=== PATIENT | female | born 1975 | race African-American/Black ===

== ENCOUNTER 2021-05-13 08:44 | Inpatient (IN) | payer OTHER ==
[2021-05-13] MEDS ORDERED: MAG HYDROX/AL HYDROX/SIMETH 30 ML UNIT-DOSE CUP PO PRN (09:38)
[2021-05-13] MEDS ORDERED: ONDANSETRON *ODT* 4 MG TABLET SL PRN (09:38)
[2021-05-13] MEDS ORDERED: IBUPROFEN 400 MG TABLET (FP) PO PRN (09:38)
[2021-05-13] MEDS ORDERED: ACETAMINOPHEN 325 MG TABLET (FP) PO PRN ×2 (09:38)
[2021-05-13] MEDS ORDERED: MAGNESIUM HYDROX 2400MG/30ML ORAL SUSPENSION 30 ML CUP PO PRN (09:38)
[2021-05-13] MEDS ORDERED: MAGNESIUM CITRATE 300 ML BOTTLE PO PRN (09:38)
[2021-05-13] MEDS ORDERED: BISMUTH SUBSALICYLATE 262 MG/15 ML BTL PO PRN (09:38)
[2021-05-13] MEDS ORDERED: MENTHOL/PHENOL 1 EACH UD MM PRN (09:38)
[2021-05-13 10:37] VITALS: BMI 27.8
[2021-05-13] MEDS: hydrOXYzine PAMOATE 25 MG CAPSULE (FP) PO SCH ×4 (11:44→22:33)
[2021-05-13] MEDS: METHOCARBAMOL 500 MG TABLET PO PRN ×2 (11:44→18:02)
[2021-05-13] MEDS: diazePAM 5 MG TABLET PO SCH ×2 (11:46→17:28)
[2021-05-13] MEDS: PRENATAL VITAMINS W/ FOLIC ACID TABLET (FP) PO SCH (11:46)
[2021-05-13 13:58] LABS: HEMATOCRIT 41.3 % (32.4-45.2); HEMOGLOBIN 13.2 GM/dL (10.7-15.3); MCH 27.6 pg (25.7-33.7); MEAN CELL VOLUME 86.4 fl (80-96); PLATELET COUNT 229 10^3/uL (134-434); RBC 4.78 M/mm3 (3.60-5.2); RDW 16.7 % (11.6-15.6); WHITE BLOOD COUNT 6.5 K/mm3 (4.0-10.0)
[2021-05-13 14:05] LABS: ALBUMIN 4.4 g/dl (3.4-5.0); CALCIUM 9.5 mg/dL (8.5-10.1)
[2021-05-13 14:09] LABS: CREATININE 0.7 mg/dL (0.55-1.3)
[2021-05-13 14:10] LABS: BILIRUBIN,TOTAL 0.7 mg/dL (0.2-1); TOT PROT 8.6 g/dl (6.4-8.2)
[2021-05-13] MEDS: TAMOXIFEN CITRATE 10 MG TABLET PO SCH (16:01)
[2021-05-13] MEDS: diazePAM 5 MG TABLET PO PRN ×2 (18:01→22:34)
[2021-05-13] MEDS: traZODone HCL 50 MG TABLET (FP) PO SCH (22:33)
[2021-05-13] MEDS: THIAMINE HCL 100 MG TABLET (FP) PO SCH (22:33)
[2021-05-13] MEDS: MELATONIN 5 MG TABLETS PO SCH (22:34)
[2021-05-14] MEDS: diazePAM 5 MG TABLET PO SCH ×5 (00:04→22:16)
[2021-05-14] MEDS: hydrOXYzine PAMOATE 25 MG CAPSULE (FP) PO SCH ×5 (06:06→22:18)
[2021-05-14] MEDS: TAMOXIFEN CITRATE 10 MG TABLET PO SCH (10:43)
[2021-05-14] MEDS: PRENATAL VITAMINS W/ FOLIC ACID TABLET (FP) PO SCH (10:44)
[2021-05-14] MEDS: THIAMINE HCL 100 MG TABLET (FP) PO SCH (22:15)
[2021-05-14] MEDS: traZODone HCL 50 MG TABLET (FP) PO SCH (22:15)
[2021-05-14] MEDS: METHOCARBAMOL 500 MG TABLET PO PRN (22:16)
[2021-05-14] MEDS: MELATONIN 5 MG TABLETS PO SCH (22:17)
[2021-05-15] MEDS: hydrOXYzine PAMOATE 25 MG CAPSULE (FP) PO SCH ×5 (06:25→22:32)
[2021-05-15] MEDS: diazePAM 5 MG TABLET PO SCH ×3 (06:26→22:30)
[2021-05-15] MEDS: PRENATAL VITAMINS W/ FOLIC ACID TABLET (FP) PO SCH (10:24)
[2021-05-15] MEDS: TAMOXIFEN CITRATE 10 MG TABLET PO SCH (10:24)
[2021-05-15] MEDS: diazePAM 5 MG TABLET PO PRN (10:25)
[2021-05-15] MEDS: traZODone HCL 50 MG TABLET (FP) PO SCH (22:29)
[2021-05-15] MEDS: THIAMINE HCL 100 MG TABLET (FP) PO SCH (22:29)
[2021-05-15] MEDS: MELATONIN 5 MG TABLETS PO SCH (22:33)
[2021-05-16] MEDS ORDERED: diazePAM 5 MG TABLET PO SCH (06:00)
[2021-05-16] MEDS: hydrOXYzine PAMOATE 25 MG CAPSULE (FP) PO SCH ×2 (06:20→10:08)
[2021-05-16] MEDS: TAMOXIFEN CITRATE 10 MG TABLET PO SCH (10:08)
[2021-05-16] MEDS: PRENATAL VITAMINS W/ FOLIC ACID TABLET (FP) PO SCH (10:08)
[2021-05-16 11:05] VITALS: BP 142/98; PULSE 89; TEMP 97.1
[2021-05-17] MEDS ORDERED: diazePAM 5 MG TABLET PO ONE (06:00)
== END 2021-05-16 11:44 | disposition home or self-care (01) | DRG 775 ==
LOC: YASAS 08:44 → Y6N 10:45
PROVIDERS: ADMIT Allergy & Immunology; ATTEND Allergy & Immunology
PROC: HZ2ZZZZ Detoxification Services for Substance Abuse Treatment (ICD-10-PCS; principal; 2021-05-13)
DX: F10.230 Alcohol dependence with withdrawal, uncomplicated (principal); F41.1 Generalized anxiety disorder; F32.9 Major depressive disorder, single episode, unspecified; I10 Essential (primary) hypertension; Z85.3 Personal history of malignant neoplasm of breast; Z90.11 Acquired absence of right breast and nipple
CPT/HCPCS: 36415; 80053; 81025; 85027; 86780; 93005; 93010; C9803; U0003; U0005

== ENCOUNTER 2021-05-22 12:57 | Inpatient (IN) | payer OTHER ==
[2021-05-22 13:14] VITALS: BMI 24.6
[2021-05-22] MEDS ORDERED: MAGNESIUM HYDROX 2400MG/30ML ORAL SUSPENSION 30 ML CUP PO PRN (13:55)
[2021-05-22] MEDS ORDERED: MENTHOL/PHENOL 1 EACH UD MM PRN (13:55)
[2021-05-22] MEDS ORDERED: ACETAMINOPHEN 325 MG TABLET (FP) PO PRN ×2 (13:55)
[2021-05-22] MEDS ORDERED: MAG HYDROX/AL HYDROX/SIMETH 30 ML UNIT-DOSE CUP PO PRN (13:55)
[2021-05-22] MEDS ORDERED: MAGNESIUM CITRATE 300 ML BOTTLE PO PRN (13:55)
[2021-05-22] MEDS ORDERED: IBUPROFEN 400 MG TABLET (FP) PO PRN (13:55)
[2021-05-22] MEDS ORDERED: ONDANSETRON *ODT* 4 MG TABLET SL PRN (13:55)
[2021-05-22] MEDS ORDERED: BISMUTH SUBSALICYLATE 524 MG/30 ML PO PRN (13:55)
[2021-05-22] MEDS: hydrOXYzine PAMOATE 25 MG CAPSULE (FP) PO SCH ×3 (15:57→22:33)
[2021-05-22] MEDS: METHOCARBAMOL 500 MG TABLET PO PRN (22:33)
[2021-05-22] MEDS: THIAMINE HCL 100 MG TABLET (FP) PO SCH (22:33)
[2021-05-22] MEDS: MELATONIN 5 MG TABLETS PO SCH (22:33)
[2021-05-23] MEDS: hydrOXYzine PAMOATE 25 MG CAPSULE (FP) PO SCH ×5 (06:04→22:20)
[2021-05-23] MEDS ORDERED: LORazepam 2 MG TABLET PO ONE (06:57)
[2021-05-23] MEDS ORDERED: LORazepam 1 MG TABLET PO PRN (06:57)
[2021-05-23 09:32] LABS: HEMATOCRIT 36.4 % (32.4-45.2); MCH 27.9 pg (25.7-33.7); MEAN CELL VOLUME 84.7 fl (80-96); MEAN PLT VOLUME 7.8 fl (7.5-11.1); PLATELET COUNT 218 10^3/uL (134-434); RDW 16.5 % (11.6-15.6); WHITE BLOOD COUNT 5.4 K/mm3 (4.0-10.0)
[2021-05-23 09:52] LABS: BLOOD UREA NITROGEN 10.5 mg/dL (7-18)
[2021-05-23 09:55] LABS: CALCIUM 9.4 mg/dL (8.5-10.1); CREATININE 0.9 mg/dL (0.55-1.3)
[2021-05-23 09:57] LABS: BILIRUBIN,TOTAL 0.8 mg/dL (0.2-1); TOT PROT 7.7 g/dl (6.4-8.2)
[2021-05-23] MEDS: LORazepam 2 MG TABLET PO SCH ×3 (09:59→22:19)
[2021-05-23] MEDS: PRENATAL VITAMINS W/ FOLIC ACID TABLET (FP) PO SCH (10:00)
[2021-05-23 10:45] LABS: HIV INTERPRETATION NEGATIVE (NEGATIVE)
[2021-05-23] MEDS: cloNIDine HCL 0.1 MG TABLET PO PRN (18:09)
[2021-05-23] MEDS: THIAMINE HCL 100 MG TABLET (FP) PO SCH (22:19)
[2021-05-23] MEDS: METHOCARBAMOL 500 MG TABLET PO PRN (22:19)
[2021-05-23] MEDS: MELATONIN 5 MG TABLETS PO SCH (22:19)
[2021-05-24] MEDS: hydrOXYzine PAMOATE 25 MG CAPSULE (FP) PO SCH ×5 (05:44→22:19)
[2021-05-24] MEDS: LORazepam 2 MG TABLET PO SCH ×4 (05:44→22:19)
[2021-05-24] MEDS: PRENATAL VITAMINS W/ FOLIC ACID TABLET (FP) PO SCH (10:13)
[2021-05-24] MEDS: cloNIDine HCL 0.1 MG TABLET PO PRN (10:15)
[2021-05-24] MEDS: METHOCARBAMOL 500 MG TABLET PO PRN (10:17)
[2021-05-24] MEDS: LISINOPRIL 10 MG TABLET PO SCH (12:33)
[2021-05-24] MEDS: THIAMINE HCL 100 MG TABLET (FP) PO SCH (22:19)
[2021-05-24] MEDS: MELATONIN 5 MG TABLETS PO SCH (22:19)
[2021-05-25] MEDS: hydrOXYzine PAMOATE 25 MG CAPSULE (FP) PO SCH ×5 (05:46→22:11)
[2021-05-25] MEDS: LORazepam 1 MG TABLET PO SCH ×4 (05:46→22:09)
[2021-05-25] MEDS: PRENATAL VITAMINS W/ FOLIC ACID TABLET (FP) PO SCH (10:02)
[2021-05-25] MEDS: METHOCARBAMOL 500 MG TABLET PO PRN ×2 (10:02→22:09)
[2021-05-25] MEDS: LISINOPRIL 10 MG TABLET PO SCH (10:03)
[2021-05-25] MEDS: cloNIDine HCL 0.1 MG TABLET PO PRN (22:09)
[2021-05-25] MEDS: THIAMINE HCL 100 MG TABLET (FP) PO SCH (22:10)
[2021-05-25] MEDS: MELATONIN 5 MG TABLETS PO SCH (22:10)
[2021-05-26] MEDS ORDERED: LORazepam 0.5 MG TABLET PO PRN
[2021-05-26] MEDS: hydrOXYzine PAMOATE 25 MG CAPSULE (FP) PO SCH ×5 (06:03→22:34)
[2021-05-26] MEDS: LORazepam 0.5 MG TABLET PO SCH ×3 (06:03→17:21)
[2021-05-26] MEDS: PRENATAL VITAMINS W/ FOLIC ACID TABLET (FP) PO SCH (10:02)
[2021-05-26] MEDS: LISINOPRIL 20 MG TABLET PO SCH (10:03)
[2021-05-26] MEDS: METHOCARBAMOL 500 MG TABLET PO PRN (10:03)
[2021-05-26] MEDS: THIAMINE HCL 100 MG TABLET (FP) PO SCH (22:33)
[2021-05-26] MEDS: MELATONIN 5 MG TABLETS PO SCH (22:33)
[2021-05-27] MEDS: LORazepam 0.5 MG TABLET PO SCH (00:12)
[2021-05-27] MEDS ORDERED: LORazepam 0.5 MG TABLET PO ONE (05:00)
[2021-05-27] MEDS: hydrOXYzine PAMOATE 25 MG CAPSULE (FP) PO SCH ×5 (06:48→21:16)
[2021-05-27] MEDS: LISINOPRIL 20 MG TABLET PO SCH (10:25)
[2021-05-27] MEDS: PRENATAL VITAMINS W/ FOLIC ACID TABLET (FP) PO SCH (10:25)
[2021-05-27 14:19] LABS: URINE APPEARANCE Clear; URINE BILIRUBIN Negative (NEGATIVE); URINE COLOR Yellow; URINE GLUCOSE (UA) Negative (NEGATIVE); URINE KETONE Negative (NEGATIVE); URINE LEUK ESTERASE 1+ (NEGATIVE); URINE NITRITE Negative (NEGATIVE); URINE PROTEIN Negative (NEGATIVE); URINE UROBILINOGEN 0.2 mg/dL (0.2-1.0)
[2021-05-27 14:32] LABS: EPI CELLS 2+ /uL (0-25.1); URINE RBC 0-3 /uL (0-23.9)
[2021-05-27 14:33] LABS: URINE BACTERIA FEW /uL (0-1359)
[2021-05-27] MEDS: THIAMINE HCL 100 MG TABLET (FP) PO SCH (21:15)
[2021-05-27] MEDS: MELATONIN 5 MG TABLETS PO SCH (21:15)
[2021-05-27] MEDS: cloNIDine HCL 0.1 MG TABLET PO PRN (21:16)
[2021-05-27] MEDS: METHOCARBAMOL 500 MG TABLET PO PRN (21:16)
[2021-05-28] MEDS: hydrOXYzine PAMOATE 25 MG CAPSULE (FP) PO SCH ×2 (06:35→10:14)
[2021-05-28] MEDS: LISINOPRIL 20 MG TABLET PO SCH (10:14)
[2021-05-28] MEDS: PRENATAL VITAMINS W/ FOLIC ACID TABLET (FP) PO SCH (10:14)
[2021-05-28] MEDS: traZODone HCL 100 MG TABLET (FP) PO SCH (21:13)
[2021-05-28] MEDS: THIAMINE HCL 100 MG TABLET (FP) PO SCH (21:13)
[2021-05-28] MEDS: MELATONIN 5 MG TABLETS PO SCH (21:13)
[2021-05-28] MEDS: cloNIDine HCL 0.1 MG TABLET PO PRN (21:13)
[2021-05-29] MEDS: PRENATAL VITAMINS W/ FOLIC ACID TABLET (FP) PO SCH (10:32)
[2021-05-29] MEDS: LISINOPRIL 20 MG TABLET PO SCH (10:33)
[2021-05-29] MEDS: traZODone HCL 100 MG TABLET (FP) PO SCH (22:41)
[2021-05-29] MEDS: THIAMINE HCL 100 MG TABLET (FP) PO SCH (22:42)
[2021-05-29] MEDS: hydrOXYzine PAMOATE 25 MG CAPSULE (FP) PO PRN (22:42)
[2021-05-29] MEDS: MELATONIN 5 MG TABLETS PO SCH (22:42)
[2021-05-30] MEDS: PRENATAL VITAMINS W/ FOLIC ACID TABLET (FP) PO SCH (10:44)
[2021-05-30] MEDS: hydrOXYzine PAMOATE 25 MG CAPSULE (FP) PO PRN (10:45)
[2021-05-30] MEDS: LISINOPRIL 20 MG TABLET PO SCH (10:45)
[2021-05-30] MEDS: THIAMINE HCL 100 MG TABLET (FP) PO SCH (22:05)
[2021-05-30] MEDS: traZODone HCL 100 MG TABLET (FP) PO SCH (22:05)
[2021-05-30] MEDS: MELATONIN 5 MG TABLETS PO SCH (22:06)
[2021-05-31] MEDS: PRENATAL VITAMINS W/ FOLIC ACID TABLET (FP) PO SCH (10:41)
[2021-05-31] MEDS: hydrOXYzine PAMOATE 25 MG CAPSULE (FP) PO PRN ×2 (10:42→17:38)
[2021-05-31] MEDS: LISINOPRIL 20 MG TABLET PO SCH (10:42)
[2021-05-31] MEDS: THIAMINE HCL 100 MG TABLET (FP) PO SCH (22:16)
[2021-05-31] MEDS: traZODone HCL 100 MG TABLET (FP) PO SCH (22:16)
[2021-05-31] MEDS: MELATONIN 5 MG TABLETS PO SCH (22:17)
[2021-05-31] MEDS: ARTIFICIAL TEARS (POLYVINYL ALCOHOL) OPTH DROPS OU PRN (22:17)
[2021-06-01] MEDS: hydrOXYzine PAMOATE 25 MG CAPSULE (FP) PO PRN (07:00)
[2021-06-01] MEDS: LISINOPRIL 20 MG TABLET PO SCH (10:21)
[2021-06-01] MEDS: PRENATAL VITAMINS W/ FOLIC ACID TABLET (FP) PO SCH (10:21)
[2021-06-01] MEDS: THIAMINE HCL 100 MG TABLET (FP) PO SCH (21:19)
[2021-06-01] MEDS: traZODone HCL 100 MG TABLET (FP) PO SCH (21:19)
[2021-06-01] MEDS: MELATONIN 5 MG TABLETS PO SCH (21:19)
[2021-06-02] MEDS: hydrOXYzine PAMOATE 25 MG CAPSULE (FP) PO PRN (06:22)
[2021-06-02] MEDS: PRENATAL VITAMINS W/ FOLIC ACID TABLET (FP) PO SCH (10:58)
[2021-06-02] MEDS: LISINOPRIL 20 MG TABLET PO SCH (10:59)
[2021-06-02] MEDS ORDERED: PT OWN MED DRAWER 7, Y5N ONE (21:25)
[2021-06-02] MEDS: traZODone HCL 100 MG TABLET (FP) PO SCH (21:26)
[2021-06-02] MEDS: THIAMINE HCL 100 MG TABLET (FP) PO SCH (21:26)
[2021-06-02] MEDS: ARTIFICIAL TEARS (POLYVINYL ALCOHOL) OPTH DROPS OU PRN (21:26)
[2021-06-02] MEDS: MELATONIN 5 MG TABLETS PO SCH (21:27)
[2021-06-03] MEDS: LISINOPRIL 20 MG TABLET PO SCH (10:42)
[2021-06-03] MEDS: PRENATAL VITAMINS W/ FOLIC ACID TABLET (FP) PO SCH (10:42)
[2021-06-03] MEDS: ARTIFICIAL TEARS (POLYVINYL ALCOHOL) OPTH DROPS OU PRN (10:44)
[2021-06-03] MEDS: hydrOXYzine PAMOATE 25 MG CAPSULE (FP) PO PRN (21:20)
[2021-06-03] MEDS: traZODone HCL 100 MG TABLET (FP) PO SCH (21:20)
[2021-06-03] MEDS: MELATONIN 5 MG TABLETS PO SCH (21:20)
[2021-06-03] MEDS: THIAMINE HCL 100 MG TABLET (FP) PO SCH (21:20)
[2021-06-04] MEDS: ARTIFICIAL TEARS (POLYVINYL ALCOHOL) OPTH DROPS OU PRN ×2 (06:51→21:40)
[2021-06-04] MEDS: hydrOXYzine PAMOATE 25 MG CAPSULE (FP) PO PRN ×2 (06:51→21:39)
[2021-06-04] MEDS ORDERED: PT OWN MED DRAWER 7, Y5N ONE (06:52)
[2021-06-04] MEDS: PRENATAL VITAMINS W/ FOLIC ACID TABLET (FP) PO SCH (10:35)
[2021-06-04] MEDS: LISINOPRIL 20 MG TABLET PO SCH (10:37)
[2021-06-04] MEDS ORDERED: NALTREXONE HCL 50 MG TABLET PO ONE (14:30)
[2021-06-04] MEDS: THIAMINE HCL 100 MG TABLET (FP) PO SCH (21:39)
[2021-06-04] MEDS: traZODone HCL 100 MG TABLET (FP) PO SCH (21:39)
[2021-06-04] MEDS: MELATONIN 5 MG TABLETS PO SCH (21:40)
[2021-06-05] MEDS: PRENATAL VITAMINS W/ FOLIC ACID TABLET (FP) PO SCH (10:50)
[2021-06-05] MEDS: NALTREXONE HCL 50 MG TABLET PO SCH (10:52)
[2021-06-05] MEDS: ARTIFICIAL TEARS (POLYVINYL ALCOHOL) OPTH DROPS OU PRN ×2 (10:52→21:31)
[2021-06-05] MEDS: LISINOPRIL 20 MG TABLET PO SCH (10:52)
[2021-06-05] MEDS: hydrOXYzine PAMOATE 25 MG CAPSULE (FP) PO PRN (10:53)
[2021-06-05] MEDS: traZODone HCL 100 MG TABLET (FP) PO SCH (21:31)
[2021-06-05] MEDS: MELATONIN 5 MG TABLETS PO SCH (21:32)
[2021-06-05] MEDS: THIAMINE HCL 100 MG TABLET (FP) PO SCH (21:32)
[2021-06-06] MEDS: PRENATAL VITAMINS W/ FOLIC ACID TABLET (FP) PO SCH (10:20)
[2021-06-06] MEDS: LISINOPRIL 20 MG TABLET PO SCH (10:20)
[2021-06-06] MEDS: hydrOXYzine PAMOATE 25 MG CAPSULE (FP) PO PRN ×2 (10:21→21:37)
[2021-06-06] MEDS: NALTREXONE HCL 50 MG TABLET PO SCH (10:21)
[2021-06-06] MEDS: ARTIFICIAL TEARS (POLYVINYL ALCOHOL) OPTH DROPS OU PRN ×2 (10:22→21:37)
[2021-06-06] MEDS: THIAMINE HCL 100 MG TABLET (FP) PO SCH (21:37)
[2021-06-06] MEDS: MELATONIN 5 MG TABLETS PO SCH (21:37)
[2021-06-06] MEDS: traZODone HCL 100 MG TABLET (FP) PO SCH (21:37)
[2021-06-06] MEDS ORDERED: PT OWN MED DRAWER 7, Y5N ONE (21:38)
[2021-06-07] MEDS: hydrOXYzine PAMOATE 25 MG CAPSULE (FP) PO PRN ×2 (06:19→22:28)
[2021-06-07] MEDS: ARTIFICIAL TEARS (POLYVINYL ALCOHOL) OPTH DROPS OU PRN (06:20)
[2021-06-07] MEDS ORDERED: PT OWN MED DRAWER 7, Y5N ONE ×2 (06:20→06:21)
[2021-06-07] MEDS: PRENATAL VITAMINS W/ FOLIC ACID TABLET (FP) PO SCH (10:34)
[2021-06-07] MEDS: LISINOPRIL 20 MG TABLET PO SCH (10:34)
[2021-06-07] MEDS ORDERED: NALTREXONE MICROSPHERES (VIVITROL) 380 MG DISP.SYRIN IM ONE (12:00)
[2021-06-07] MEDS: traZODone HCL 100 MG TABLET (FP) PO SCH (22:27)
[2021-06-07] MEDS: THIAMINE HCL 100 MG TABLET (FP) PO SCH (22:27)
[2021-06-07] MEDS: MELATONIN 5 MG TABLETS PO SCH (22:29)
[2021-06-08 07:28] VITALS: BP 143/85; PULSE 64; TEMP 96.8
[2021-06-08] MEDS: LISINOPRIL 20 MG TABLET PO SCH (09:41)
[2021-06-08] MEDS: PRENATAL VITAMINS W/ FOLIC ACID TABLET (FP) PO SCH (09:41)
[2021-06-08] MEDS: hydrOXYzine PAMOATE 25 MG CAPSULE (FP) PO PRN (09:43)
[2021-06-08] MEDS: ARTIFICIAL TEARS (POLYVINYL ALCOHOL) OPTH DROPS OU PRN (09:43)
== END 2021-06-08 11:05 | disposition home or self-care (01) | DRG 895 ==
LOC: YASAS 12:57 → Y6N 14:53 → Y5N 05-26 19:51
PROVIDERS: ADMIT Allergy & Immunology; ATTEND Allergy & Immunology
PROC: HZ2ZZZZ Detoxification Services for Substance Abuse Treatment (ICD-10-PCS; 2021-05-22)
PROC: HZ42ZZZ Group Counseling for Substance Abuse Treatment, Cognitive-Behavioral (ICD-10-PCS; principal; 2021-05-26)
DX: F10.20 Alcohol dependence, uncomplicated (principal); F19.282 Other psychoactive substance dependence with psychoactive substance-induced sleep disorder; F19.24 Other psychoactive substance dependence with psychoactive substance-induced mood disorder; F41.9 Anxiety disorder, unspecified; F32.9 Major depressive disorder, single episode, unspecified; I10 Essential (primary) hypertension; K21.9 Gastro-esophageal reflux disease without esophagitis; M54.5 Low back pain; G89.29 Other chronic pain; M19.90 Unspecified osteoarthritis, unspecified site; Z62.810 Personal history of physical and sexual abuse in childhood; Z85.3 Personal history of malignant neoplasm of breast; Z51.81 Encounter for therapeutic drug level monitoring; Z86.59 Personal history of other mental and behavioral disorders
CPT/HCPCS: 36415; 80053; 81003; 85027; 86780; 87389; C9803; J0735; J2315; U0003; U0005